=== PATIENT | female | born 1965 | race Caucasian/White ===

== ENCOUNTER 2024-10-22 18:44 | Emergency (ER) | payer MEDICAID, SELFPAY ==
[2024-10-22 19:13] VITALS: BP 162/92; PULSE 87; RESP 20; TEMP 36.6; O2SAT 95; BMI 38.9
[2024-10-22 19:15] VITALS: PULSE 76; RESP 18; O2SAT 98; BMI 34.9
--- NOTE | 2024-10-22 19:25 | PC.NURSE ---
pt changed, repositioned,purewick in place. vs taken and connected to monitor
--- NOTE | 2024-10-22 19:50 | EDNOTE_ITS ---
ED Chest Pain RME/HPI General Chief Complaint: Abdominal Pain Stated Complaint: ABD PAIN Time Seen by Provider: 10/22/24 19:47 Arrival date/time: 10/22/24 18:44 RME / HPI RME / HPI narrative: This section includes all my notes and documentations, including HPI, PE, and ED course. Ang Prakash MD HPI: 59-year-old female here to be evaluated with chest pain and abdominal pain. She is [place] [facility]. She has trouble describing her symptoms and more details, including the onset and quality and quantity exacerbating factors and relieving factors. No other complaints. ROS: All negative except as documented in HPI. Physical Exam: General: Alert and oriented. No acute distress when remaining still. Eyes: Conjunctivae and lids clear. EOMI. PERRL. ENT: No nasal congestion. Pharynx normal. Tympanic membrane normal bilaterally. Neck: Supple. No carotid bruit. No JVD. Heart: RRR. Lungs: No respiratory distress. Good air movement. No rhonchi, wheezing, rales. Chest: Equivocal tenderness, Abdomen: Soft with equivocal tenderness, difficult to localize. Normal bowel sounds. No distension. No rebound or guarding. Back: No CVA tenderness. Legs: No clubbing, cyanosis, edema. Skin: Warm and dry. Neuro: Alert and oriented X 3. Cranial Nerves II-XII grossly intact. No peripheral motor deficits. I reviewed all diagnostic test results. My interpretation of the EKG is sinus rhythm with nonspecific ST?T changes. My review of the chest/abdomen/pelvis CT report is signs of pyelonephritis. Blood tests and urine tests remarkable for UTI. At this point, diagnoses include UTI, early pyelonephritis. Treatment here included Rocephin. Based on my best medical judgment, made decision no further evaluation or treatment indicated at this time. Patient understands and agrees to the discharge instructions customized and printed, see below. Discharge instructions from Dr. Prakash: 1. After extensive evaluation, there is no life-threatening condition.? Such as heart attack or pulmonary embolism (blood clots in your lungs) or pneumothorax (collapsed lung). And there is no intra-abdominal emergency. 2. You have UTI, early kidney infection. 3. Take cefdinir as prescribed. For good hydration, increase oral fluid and maintain clear urine. If dark or yellow, increase oral fluid. 4. Seek immediate medical care with worsening or with any concerns.?? Ang Prakash MD Related Data Home Medications ?Medication ?Instructions ?Recorded ?Confirmed atorvastatin 40 mg tablet 40 mg PO HS 11/16/21 01/08/23 fluoxetine 40 mg capsule 40 mg PO QDAY 11/16/21 01/08/23 losartan 100 mg tablet 100 mg PO QDAY 11/16/21 01/08/23 metformin 1,000 mg tablet 1,000 mg PO QDAY 11/16/21 01/08/23 sitagliptin phosphate 100 mg 100 mg PO QDAY 11/16/21 01/08/23 tablet (Januvia) acetaminophen 325 mg tablet 650 mg PO [id number] PRN Pain (Scale 01/08/23 01/08/23 Score 1-3) ascorbic acid (vitamin C) 500 mg 500 mg PO BID 01/08/23 01/08/23 tablet bisacodyl 10 mg rectal suppository 10 mg OR PRN PRN Constipation 01/08/23 01/08/23 (Dulcolax (bisacodyl)) chlorhexidine gluconate 4 % 1 applic topical USEASDIRECTD 01/08/23 01/08/23 topical liquid (Hibiclens) diphenhydramine HCl 25 mg capsule 25 mg PO Q8HR PRN Allergy Symptoms 01/08/23 01/08/23 divalproex 125 mg tablet,delayed 250 mg PO HS 01/08/23 01/08/23 release (Depakote) docusate sodium 250 mg capsule 250 mg PO BID 01/08/23 01/08/23 famotidine 20 mg tablet 20 mg PO BID 01/08/23 01/08/23 glucagon 1 mg solution for 1 mg subcut PRN PRN Hypoglycemia 01/08/23 01/08/23 injection (GlucaGen HypoKit) hydrocortisone 1 % topical cream 1 applic topical USEASDIRECTD 01/08/23 01/08/23 magnesium hydroxide 400 mg/5 mL 30 ml PO Q24H PRN Constipation 01/08/23 01/08/23 oral suspension (Milk of Magnesia) multivitamin,cp-jtmd-Fm-FA-min 1 tab PO DAILY 01/08/23 01/08/23 pregabalin 75 mg capsule 75 mg PO BID 01/08/23 01/08/23 quetiapine 50 mg tablet 50 mg PO BID 01/08/23 01/08/23 sodium phosphates 19 gram-7 118 ml OR Q72H PRN Constipation 01/08/23 01/08/23 gram/118 mL enema (Fleet Enema) Previous Rx's ?Medication ?Instructions ?Recorded doxycycline hyclate 100 mg capsule 100 mg PO BID #14 caps 01/12/23 hydrocodone 5 mg-acetaminophen 325 1 tab PO TID PRN pain #12 tabs 01/12/23 mg tablet cefdinir 300 mg capsule 300 mg PO BID #14 caps 10/23/24 Allergies Allergy/AdvReac Type Severity Reaction Status Date / Time morphine Allergy Severe RASH, Verified 01/03/23 15:27 VOMITING codeine AdvReac Severe UPSET Verified 01/03/23 15:27 STOMACH, VOMITING Course Quality Measures none Orders Category Date Time Status EKG (ED ONLY) *Do not use* NOW Care 10/22/24 19:52 Completed Saline [Insert IV] NOW Care 10/22/24 19:51 Active Straight [In and Out Catheter] X1 Care 10/22/24 19:[address] angio chest abdomen pelvis Stat Exams 10/22/24 19:[address] chest abdomen pelvis wo Stat Exams 10/22/24 23:44 Taken EKG (ED Only) Stat Exams 10/22/24 19:52 Ordered BNP [B-Type Natriuretic Peptide] Stat Lab 10/22/24 21:19 Completed CBC Stat Lab 10/22/24 21:19 Completed CMP [Comprehensive Metabolic Panel] Stat Lab 10/22/24 21:19 Completed D-Dimer Stat Lab 10/22/24 21:19 Completed Magnesium Stat Lab 10/22/24 21:19 Completed Troponin I Stat Lab 10/22/24 21:19 Completed UA, C/S IF [Urinalysis, C/S if Indicated] Stat Lab 10/23/24 01:32 Completed Haloperidol Lactate [Haldol Inj] Med 10/22/24 21:57 Discontinued 5 mg IV X1 ONE Ketorolac Inj [Toradol Inj] Med 10/22/24 19:52 Discontinued 30 mg IVP X1 ONE LORazepam [Ativan Inj] Med 10/22/24 23:52 Discontinued 2 mg IM X1 ONE LORazepam [Ativan Inj] Med 10/22/24 22:33 Discontinued 2 mg IVP X1 ONE Ondansetron Inj [Zofran Inj] Med 10/22/24 19:52 Discontinued 4 mg IV X1 ONE cefTRIAXone [Rocephin] 1,000 mg Med 10/23/24 02:44 Discontinued Lidocaine 1% 20 ml [Xylocaine 1% 20 ML] 2.1 ml IM X1 Vital Signs Vital signs: Vital Signs Temperature 97.8 F 10/22/24 19:13 Pulse Rate 87 10/22/24 19:13 Respiratory Rate 20 10/22/24 19:13 Blood Pressure 162/92 H 10/22/24 19:13 Pulse Oximetry (%) 95 10/22/24 19:13 Oxygen Delivery Method Room Air 10/22/24 19:13 Chest Pain Patient data External records reviewed:: [facility] previous records, EMS form and Intermediate records Clinical information provided by:: patient and EMS Social determinants that could affect healthcare access:: mental health Patient has the following chronic illnesses:: Bipolar disorder and DM and HTN How is presenting disease/condition affected by chronic disease/condition?: exacerbated by Evaluation data The following diagnostics were reviewed and interpreted by me:: lab results, radiology exam(s) and EKG tracing(s) (My interpretation of the EKG: NSR (87 bpm) with no ST-T changes. Ang Prakash MD) Lab and/or radiology exams considered but not ordered:: None Interpretation Summary: UTI Medications / Prescriptions Medications or Prescriptions considered but not ordered:: None Medication administrations:: Medication Administration History Discontinued Medications Ceftriaxone Sodium 1,000 mg/ (Lidocaine HCl 2.1 ml) 0 mg IM X1 ONE Stop: 10/23/24 02:45 Haloperidol Lactate (Haloperidol Lact Inj 5 Mg/Ml Vial) 5 mg IV X1 ONE Stop: 10/22/24 21:58 Last Admin: 10/22/24 22:21 Dose: 5 mg Documented By: MAYITO Ketorolac Tromethamine (Ketorolac Inj 30 Mg/Ml Vial) 30 mg IVP X1 ONE Stop: 10/22/24 19:53 Last Admin: 10/22/24 21:22 Dose: 30 mg Documented By: GISSEL Lorazepam (Lorazepam 2 Mg/Ml Vial) 2 mg IVP X1 ONE Stop: 10/22/24 22:34 Last Admin: 10/22/24 23:53 Dose: Not Given Documented By: MAYITO Non-Admin Reason: Other, see note Lorazepam (Lorazepam 2 Mg/Ml Vial) 2 mg IM X1 ONE Stop: 10/22/24 23:53 Last Admin: 10/22/24 23:55 Dose: 2 mg Documented By: MAYITO Ondansetron HCl (Ondansetron Inj 2 Mg/Ml Inj 2 Ml) 4 mg IV X1 ONE; Protocol Stop: 10/22/24 19:53 Last Admin: 10/22/24 21:22 Dose: 4 mg Documented By: GISSEL Rocephiisabella Consultations Consultation(s) initiated? (list below): No Diagnosis Chest Pain Differential Diagnosis: pneumothorax, stable angina, unstable angina pectoris, atypical chest pain, st elevation myocardial infarction, costochondritis and other (PE, pneumonia, GERD, gastritis, PUD, UTI, pyelonephritis) Most likely diagnosis given after review of the tests above:: UTI Admission Indicated Admission indicated?: not indicated Explain why admission is indicated or not indicated:: Admission criteria not met Admission Request Was there a request for admission?: No Disposition Plan Disposition Plan: Discharge Discharge Attestation Discharge Attestation: The patient and all family members were given an opportunity to ask questions and understood the discharge instructions. Discharge instructions specifically effects, indications for sooner follow up or return to the emergency department, and the expected course of current diagnosis. Patient condition: Stable Discharge Plan Plan Patient Disposition[place] [facility] [place] Prescriptions/Referrals Prescriptions/Med Rec: New cefdinir 300 mg capsule 300 mg PO BID Qty: 14 0RF No Action fluoxetine 40 mg capsule 40 mg PO QDAY atorvastatin 40 mg tablet 40 mg PO HS metformin 1,000 mg tablet 1,000 mg PO QDAY losartan 100 mg tablet 100 mg PO QDAY Rx Instructions: hold for SBP<100 or HR<60 Januvia 100 mg tablet 100 mg PO QDAY acetaminophen 325 mg Tablet 650 mg PO [id number] PRN (Reason: Pain (Scale Score 1-3)) ascorbic acid (vitamin C) 500 mg Tablet 500 mg PO BID divalproex [Depakote] 125 mg Tablet,Delayed Release (Dr/Ec) 250 mg PO HS diphenhydramine HCl 25 mg Capsule 25 mg PO Q8HR PRN (Reason: Allergy Symptoms) Rx Instructions: prn antihistamine docusate sodium 250 mg Capsule 250 mg PO BID Rx Instructions: for constipation bisacodyl [Dulcolax (bisacodyl)] 10 mg Suppository 10 mg OR PRN PRN (Reason: Constipation) Rx Instructions: Q48hrs PRN To be administered the following shift if mom is ineffective. famotidine 20 mg tablet 20 mg PO BID Fleet Enema 19-7 gram/118 mL Enema 118 ml OR Q72H PRN (Reason: Constipation) Rx Instructions: PRN To be administered the following shift if dulcolax supp is ineffective, notify md if no result. GlucaGen HypoKit 1 mg Recon Soln 1 mg SUBCUT PRN PRN (Reason: Hypoglycemia) Rx Instructions: 1 mg inject 1 application PRN for hypoglycemia BS<50 chlorhexidine gluconate [Hibiclens] 4 % Liquid 1 applic TOPICAL USEASDIRECTD Rx Instructions: Apply to generalized body topically every cheese processor every Sat, Sat for skin maintenance hydrocortisone 1 % cream 1 applic topical USEASDIRECTD Rx Instructions: Apply to RLE and abdomen every day and cheese processor for skin lesions to affected areas pregabalin 75 mg capsule 75 mg PO BID magnesium hydroxide [Milk of Magnesia] 400 mg/5 mL Suspension 30 ml PO Q24H PRN (Reason: Constipation) multivitamin,eq-qgsf-At-FA-min Tablet 1 tab PO DAILY quetiapine 50 mg tablet 50 mg PO BID doxycycline hyclate 100 mg capsule 100 mg PO BID Qty: 14 0RF hydrocodone-acetaminophen 5-325 mg tablet 1 tab PO TID MDD 3 tablets PRN (Reason: pain) Qty: 12 0RF Referrals: No Primary/Family,Physician [Primary Care Provider] - In 1 week Problem List Clinical Impression: UTI (urinary tract infection) Patient/Caregiver Discharge Instructions Discharge Activity: resume usual activities Education Materials: ED Pyelonephritis, Female (Adult) Additional Instructions: Discharge instructions from Dr. Prakash: 1. After extensive evaluation, there is no life-threatening condition.? Such as heart attack or pulmonary embolism (blood clots in your lungs) or pneumothorax (collapsed lung). And there is no intra-abdominal emergency. 2. You have UTI, early kidney infection. 3. Take cefdinir as prescribed. For good hydration, increase oral fluid and maintain clear urine. If dark or yellow, increase oral fluid. 4. Seek immediate medical care with worsening or with any concerns.?? Print Language: [place]erratian Stand Alone Forms: Michelle Award Info., Patient Portal Info Letter
[2024-10-22] MEDS: KETOROLAC INJ 30 MG/ML VIAL IVP (21:22)
[2024-10-22] MEDS: ONDANSETRON INJ 2 MG/ML INJ 2 ML 4 MG IV (21:22)
[2024-10-22 21:47] LABS: Basophils # (Auto) 0.1 Thou/mm3 (0.0-0.2); Basophils % (Auto) 1 % (0-2.5); Eosinophils # (Auto) 0.3 Thou/mm3 (0.0-0.5); Eosinophils % (Auto) 3 % (0-10); Hematocrit 32.8 % (36.0-46.0); Hemoglobin 10.5 g/dL (12.0-16.0); Immature Granulocytes % (Auto) 0 % (0-0); Immature Granulocytes Auto 0.02 Thou/mm3 (0.00-0.00); Lymphocytes # (Auto) 2.1 Thou/mm3 (1.0-4.8); Lymphocytes % (Auto) 21 % (10-50); Mean Corpuscular Hemoglobin 29.1 pg (25.0-35.0); Mean Corpuscular Volume 91 fL (80-100); Monocytes # (Auto) 0.7 Thou/mm3 (0.0-0.8); Monocytes % (Auto) 7 % (0-12); Neutrophils # (Auto) 6.6 Thou/mm3 (1.8-7.7); Neutrophils % (Auto) 68 % (37-80); Nucleated Red Blood Cell % 0 /100 WBC (0); Platelet Count 362 Thou/mm3 (140-440); RDW Standard Deviation 49.8 fL (36.4-46.3); Red Blood Count 3.61 Miln/mm3 (4.00-5.20); White Blood Count 9.7 Thou/mm3 (3.6-11.0)
[2024-10-22 21:59] LABS: D-Dimer < 250 ng/mL (<600)
[2024-10-22] MEDS: HALOPERIDOL LACT INJ 5 MG/ML VIAL IV (22:21)
[2024-10-22 22:22] VITALS: BP 185/91; PULSE 85; RESP 18; TEMP 36.7; O2SAT 97
[2024-10-22 22:26] LABS: Alanine Aminotransferase < 7 U/L (10-49); Albumin, Serum 3.7 gm/dL (3.5-5.0); Albumin/Globulin Ratio 1.3 (1.2-2.2); Alkaline Phosphatase 72 U/L (46-116); Anion Gap 7 (7-16); Aspartate Amino Transferase < 8 U/L (0-34); BUN/Creatinine Ratio 17 Ratio (12-20); Bilirubin,Total < 0.2 mg/dL (0.3-1.2); Blood Urea Nitrogen 15 mg/dL (9-23); Calcium 8.7 mg/dL (8.3-10.6); Calcium (Corrected) 8.9 mg/dL (8.5-10.1); Carbon Dioxide 27.4 mMol/L (20.0-31.0); Chloride 104 mMol/L (98-107); Creatinine (Component) 0.9 mg/dL (0.6-1.3); Estimated Creatinine Clearance 78.7 mL/min (>60); Globulin 2.8 gm/dL (2.3-3.5); Glucose 208 mg/dL (74-106); Magnesium 1.9 mg/dL (1.6-2.6); Osmolality,Calculated 282 (275-295); Potassium 4.9 mMol/L (3.4-5.1); Sodium 138 mMol/L (136-145); Total Protein 6.5 gm/dL (5.7-8.2); Troponin I < 0.002 ng/mL (0.0-0.045); eGFR > 60 See Note
--- NOTE | 2024-10-22 22:27 | PC.NURSE ---
Pt had an episode of anxiety and began yelling and screaming. MD aware and meds given.
[2024-10-22 22:28] LABS: B-Type Natriuretic Peptide < 20 pg/mL (0-100)
--- NOTE | 2024-10-22 23:21 | PC.NURSE ---
One RN was able to place an IV to L hand, however pt pulled it out.Multiple attempts to establish IV have failed. MD is aware. Pt has not co pain to chest or abd since arival. Pt has been asking for food, however pt is NPO until Dx. pt gets angry, yelling and screaming, when denied anything she wants.
--- NOTE | 2024-10-22 23:44 | XR_ITS ---
Examination: CT chest, without intravenous contrast. CT abdomen, without intravenous contrast. CT pelvis, without intravenous contrast. 2-D sagittal and coronal reconstructions. 3-D reconstructions. Date and time of exam:October 23, 2024 0048 hours Comparison July 30, 2022 INDICATIONS: Onset shortness of breath chest pain abdominal pain today CTDI vol (mgy) 19.2 DLP (MGycm)1460 Technique: Multiple CT images, 3.0 mm slice thickness, obtained chest, abdomen, pelvis, with the high-resolution 64 slice scanner.. Sagittal and coronal 2-D reconstructions are obtained. 3-D reconstructions Low dose protocols were performed. One or more of the following dose reduction techniques were used; automated exposure control, adjustment of the mA and/or KV according to patient size, use of iterative reconstruction technique. Findings: Lack of intravenous contrast significantly limits assessment Intact thoracic and pulmonary arteries Mild calcification left anterior descending coronary artery No paratracheal tracheobronchial or bronchopulmonary adenopathy No pneumonia or pulmonary edema or pleural disease No focal liver or splenic lesion No gallstones No pancreatic or adrenal mass Renal arterial calcifications Perinephric stranding No hydronephrosis or ureteral calculi Abdominal aortic calcification no aneurysmal dilatation 14 mm fat-containing umbilical hernia No pericecal inflammatory change No bowel obstruction or diverticulitis 4 cm right ovarian cyst IMPRESSION: No pneumonia or pulmonary edema or pleural disease Perinephric stranding, clinical correlation advised, consider urinary tract infection Recommend pelvic sonography to assess for centimeter right ovarian cyst
[2024-10-22] MEDS: LORazepam 2 MG/ML VIAL IM (23:55)
[2024-10-23 01:36] VITALS: BP 147/71; PULSE 82; RESP 16; TEMP 36.8; O2SAT 94
--- NOTE | 2024-10-23 01:39 | PRELIM_ITS ---
CT scan of the chest, abdomen and pelvis without intravenous contrast (axial sections with sagittal a nd coronal reformats) October 23, 2024 at 0048 hours Clinical History: Chest pain and abdominal pain Comparison: Compared with the prior study dated July 12, 2019.Findings:The evaluation is limite d due to lack of intravenous contrast. Subpleural bulla in the left lower lobe is seen.There is no pleural effusion or pneumothorax. The aorta and its branches demonstrate atheromatous calcification w ithout evidence of aneurysm. No evidence of mediastinal mass or lymphadenopathy. There is no pericard ial effusion.A small hiatal hernia is present. The liver, gallbladder, spleen, pancreas, adrenals are unremarkable on this noncontrast study.Nonobstructing renal calculi are seen bilaterally. Nonspecifi c perinephric fat stranding is noted bilaterally. No evidence of bowel obstruction. The appendix is w ithin normal limits.The urinary bladder is incompletely distended at the time of the examination. Th ere is no free fluid or free air.There is a right ovarian cyst, measuring 4.5 cm.Osseous degenerative changes are noted. Impression:The evaluation is limited due to lack of intravenous contrast. Perin ephric fat stranding bilaterally. While nonspecific, the possibility of urinary infection cannot be e xcluded. Recommend clinical correlation. Right ovarian cyst. Recommend further evaluation with sonogr aphy, if clinically indicated. Report Electronically Signed By: Henry Mullins 10/23/2024 1:38:15 AM [ES T]
[2024-10-23 01:54] LABS: Collection Type, Urine Clean Catch
[2024-10-23 02:06] LABS: Bilirubin,Urine Negative (Negative); Blood,Urine Negative (Negative); Clarity,Urine Clear (Clear/Hazy); Color,Urine Yellow (Lt Yel-Yel); Culture Indicated,Urine Not Indicated; Glucose, Urine Negative (Negative); Ketones,Urine Negative (Negative); Leukocyte Esterase,Urine Positive (Negative); Nitrite,Urine Negative (Negative); PH,Urine 6.5 (5.0-7.0); Protein,Urine 1+ (Neg - Trace); RBC,Urine 23 /hpf (0-3); Specific Gravity,Urine 1.025 (1.001-1.035); Squamous Epithelial Cell,Urine 2 /hpf (0-5); Urobilinogen,Urine Negative mg/dL (0.0-1.0); WBC,Urine 7 /hpf (0-5)
[2024-10-23 03:00] VITALS: BP 162/73; PULSE 84; RESP 16; TEMP 37.2; O2SAT 94
--- NOTE | 2024-10-23 03:15 | PC.NURSE ---
REPORT GIVEN TO DARRELL AT [facility]
[2024-10-23] MEDS: cefTRIAXone 1,000 MG, LIDOCAINE 1% 20 ML 2.1 ML IM (03:33)
== END 2024-10-23 03:39 | disposition skilled nursing facility (03) ==
PROVIDERS: Emergency Provider Emergency Medicine
DX: N39.0 Urinary tract infection, site not specified (principal); R07.9 Chest pain, unspecified
CPT/HCPCS: 36415; 71250; 74176; 80053; 81001; 83735; 83880; 84484; 85025; 85379; 93005; 96372; 96374; 96375; 99285; J0696; J1630; J1885; J2060; J2405; J3490